=== PATIENT | male | born 1965 | race Caucasian/White ===

== ENCOUNTER 2024-11-19 06:48 | Day surgery (SDC) | payer OTHER, SELFPAY ==
--- NOTE | 2024-11-14 09:06 | PTCARENOTE ---
Shahla @ Dr. Petersen office notified of patients creat -1.73; A1C--7.2; GFR- 45; BUN 53 collected on 10/14
[2024-11-19] VITALS (8 sets, daily range): BP systolic 88–146; BP diastolic 52–76; BMI 57.8
[2024-11-19 12:50] LABS: Glucose - Point of Care 132 mg/dl (70-99)
[2024-11-19 15:12] LABS: Glucose - Point of Care 115 mg/dl (70-99)
--- NOTE | 2024-11-19 15:45 | OR.RPT ---
Operative Report
Operative Report
Anesthesia Type:
General
Operative Indications:
Right knee posterior horn medial meniscus tear, failure of conservative treatment
Operative Findings :
Complex posterior horn medial meniscus tear, moderate degenerative changes patellofemoral compartment mild to moderate changes medial compartment
Complications:
None
Implants:
None
Procedure and Technique:
Surgical arthroscopy right knee partial medial meniscectomy, chondroplasty
INDICATIONS FOR PROCEDURE:
Patient is a 59-year-old male who unfortunately sustained a work-related injury. He was seen in the office underwent ready for conservative treatment including physical therapy activity modification and intra-articular corticosteroid injections.
Subsequent MRI diagnosed patient with a posterior medial meniscus tear. We discussed continuing with both nonsurgical treatment as well as proceeding with surgical intervention. After discussion patient elected proceed with surgical intervention.
We discussed risks benefits and alternatives of surgery. We discussed the usual expected perioperative postoperative course. After discussion written informed consent was obtained. No guarantees were given.
OPERATIVE PROCEDURE:
Patient was seen identified the preoperative holding area. Operative extremity was marked. All questions were addressed and answered. He is taken the operating room where general anesthesia was administered. Nonsterile tourniquet was applied.
Operative extremity was then prepped and draped in normal sterile fashion. Timeout was performed again identifying the correct operative extremity. Preoperative antibiotics were addressed. Standard anterior lateral portal was made. Diagnostic
arthroscopy revealed some generalized synovitis suprapatellar pouch. There is no loose bodies identified suprapatellar pouch medial or lateral gutter. There is a grade 2 changes chondral surface retropatellar surface noted. There was some grade 3
changes noted trochlear groove. Notch revealed intact ACL and PCL. Lateral compartment revealed actually fairly pristine chondral surfaces with only some minor inner edge fraying of the lateral meniscus. Medial compartment showed some diffuse
grade 2 changes to the femoral chondral surface grade 1 changes to the tibial plateau chondral surface. There was complex posterior horn medial meniscus tear. Utilizing a combination of of biters and gianni, the meniscus was debrided back to a
stable border. A chondroplasty was also performed both medial compartment as well as patellofemoral compartment. Satisfied with extent surgery saline was removed from the knee. Portal incisions were closed with 3-0 Monocryl in inverted fashion.
Skin was closed with Steri-Strips. Approximately 20 cc of quarter percent Marcaine without epinephrine was injected into the portal sites as well as the suprapatellar pouch. Sterile dressing was applied consisting of Xeroform, 4 x 4 gauze, ABD
Webril Gus bandage. Tourniquet was deflated anesthesia was versed and patient was taken to PACU in stable condition. Postoperative plans include weightbearing to patient's tolerance operative extremity. Will recommend 81 mg aspirin daily for DVT
prophylaxis. Plan to see patient back in the office in 2 weeks for repeat evaluation.
Disposition:
PACU stable condition
[2024-11-19 16:05] LABS: Glucose - Point of Care 136 mg/dl (70-99)
== END 2024-11-19 17:48 | disposition home or self-care (01) ==
LOC: SDS 06:48
PROVIDERS: ATTENDING PHYSICIAN Orthopaedic Surgery; FAMILY PHYSICIAN Family Medicine
PROC: 0SBC4ZZ Excision of Right Knee Joint, Percutaneous Endoscopic Approach (ICD-10-PCS; 2024-11-19)
DX: S83.241A Other tear of medial meniscus, current injury, right knee, initial encounter (principal); X58.XXXA Exposure to other specified factors, initial encounter
CPT/HCPCS: 29881; 82962